=== PATIENT | female | born 1955 | race Caucasian/White ===

== ENCOUNTER → 2016-10-20 | Outpatient (CLI) | payer BC ==
--- NOTE | 2016-10-20 18:33 | DX ---
Lumbar Spine, Two Views, at 16:35 hours Indication: Five weeks post fusion. Technique: Upright AP and lateral views. Comparison: CT lumbar spine dated May 15, 2016 and MRI of the lumbar spine dated June 07. Findings: The posterior fusion construct extending from L4 to S1 consists of dual posterior rods and bilateral transpedicular screws in L4, L5, and S1. Allograft and markers reside in the L4-L5 and L5 -S1 interbody spaces. Screw, with a washer, in the anteroinferior cortex of L4 secures the allograft at the L4-L5 level, and a screw, with a washer, in the anterior cortex of S1 secures the graft at th e L5-S1 level. No perihardware fracture or lucency. The allograft appears partially fused to the ve rtebral bodies. Alignment is normal. No compression fractures. Moderate constipation. IMPRESSION: Well-seated posterior fusion construct extending from L4 to S1.
== END ==
LOC: BMCIMAGING 16:37
PROVIDERS: ATTEND Family Medicine
DX: Z09 Encounter for follow-up examination after completed treatment for conditions other than malignant neoplasm (principal); Z98.1 Arthrodesis status

== ENCOUNTER → 2017-01-05 | Outpatient (CLI) | payer BC | LOC: BMCIMAGING 16:50 | PROVIDERS: ATTEND Family Medicine | DX: Z09 Encounter for follow-up examination after completed treatment for conditions other than malignant neoplasm (principal); Z98.1 Arthrodesis status ==

== ENCOUNTER → 2017-03-09 | Outpatient (CLI) | payer BC | LOC: FIMAGING 13:38 | PROVIDERS: ATTEND Obstetrics & Gynecology Gynecology | DX: Z12.31 Encounter for screening mammogram for malignant neoplasm of breast (principal); Z80.3 Family history of malignant neoplasm of breast | CPT/HCPCS: G0202 ==

== ENCOUNTER → 2017-03-25 | Outpatient (CLI) | payer BC | LOC: FIMAGING 18:20 | PROVIDERS: ATTEND Internal Medicine Rheumatology | DX: M19.041 Primary osteoarthritis, right hand (principal) ==

== ENCOUNTER 2017-09-14 10:04 | Observation (INO) | payer BC ==
--- NOTE | 2017-09-14 08:12 | PDHPUP ---
History & Physical Update H&P update statement: This history and physical update is based on an assessment of the patient which was completed after admission or registration (within 24 hours), but prior to the surgery/procedure. H&P update: H&P reviewed & patient examined, no change in patient's condition since H&P completed
[2017-09-14] MEDS ORDERED: ceFAZolin 2 GM/SWFI 2 GM/20 ML SYR IVP ONE (10:08)
[2017-09-14] MEDS ORDERED: LR 1,000 ML IV ONE (10:10)
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
[2017-09-14] MEDS ORDERED: LIDOCAINE 1% 2 ML INJ ONE (10:26)
[2017-09-14] MEDS ORDERED: BUPIVACAINE 0.5% 30 ML SDV ONE (10:30)
[2017-09-14] MEDS ORDERED: MIDAZOLAM 2 MG/2 ML VIAL IVP ONE (10:44)
[2017-09-14] MEDS ORDERED: MIDAZOLAM 2 MG/2 ML VIAL ONE (10:44)
[2017-09-14] MEDS ORDERED: LIDOCAINE 2% 100 MG/5 ML SYR ONE (10:47)
[2017-09-14] MEDS ORDERED: DEXAMETHASONE 4 MG/ML VIAL ONE (10:47)
[2017-09-14] MEDS ORDERED: ONDANSETRON 4 MG/2 ML VIAL ONE (10:47)
[2017-09-14] MEDS ORDERED: fentaNYL 100 MCG/2 ML INJ ONE ×2 (10:47→12:03)
[2017-09-14] MEDS ORDERED: PROPOFOL 200 MG/20 ML VIAL ONE (10:47)
[2017-09-14] MEDS ORDERED: ROCURONIUM 50 MG/5 ML VIAL ONE (11:32)
[2017-09-14] MEDS ORDERED: SUGAMMADEX SODIUM 200 MG/2 ML VIAL IVP ONE (11:42)
[2017-09-14] MEDS ORDERED: OXYCODONE/APAP 5/325 TAB PO PRN (12:00)
[2017-09-14] MEDS ORDERED: DEXAMETHASONE 4 MG/ML VIAL IVP PRN (12:00)
[2017-09-14] MEDS ORDERED: fentaNYL 100 MCG/2 ML INJ IVP PRN (12:00)
[2017-09-14] MEDS ORDERED: ONDANSETRON 4 MG/2 ML VIAL IVP PRN ×2 (12:00→12:03)
[2017-09-14] MEDS ORDERED: HYDROCODONE/APAP 5/325 TAB PO PRN (12:00)
[2017-09-14] MEDS ORDERED: ACETAMINOPHEN 500 MG TAB PO PRN (12:00)
[2017-09-14] MEDS ORDERED: NALOXONE HCL 0.4 MG/ML INJ IVP PRN (12:00)
[2017-09-14] MEDS ORDERED: PROMETHAZINE HCL 25 MG/ML INJ IVP PRN (12:00)
--- NOTE | 2017-09-14 12:01 | POSTANESTH ---
Post Anesthetic Evaluation Cardiovascular Status: Normal, Stable, Similar to Pre-Op Cond Respiratory Status: Normal, Stable, Similar to Pre-op Cond. Level of Consciousness/Mental Status: Can Participate in Eval, Moderately Sleepy Pain Control: Adequate, Prn Tx Ordered Nausea/Vomiting Control: Adequate, Prn Tx Ordered Complications Possibly Related to Anesthesia: None Noted
--- NOTE | 2017-09-14 12:06 | POSTOPPROG ---
Post Op Note Date of Operation: 09/14/17 Surgeon: Jose Kaufman [employer] Operator Helper: Adelaide Alfonso Anesthesiologist: Rell Loya Anesthesia: LMA Pre-op Diagnosis: incisional ventral supraumbilical hernia Post-op Diagnosis: same Procedure: open incisional ventral hernia repair Findings: 1.5 in defect Inf/Abcess present in the surg proc area at time of surgery?: No EBL: Minimal Complications: none Specimen(s): ventral hernia sac
[2017-09-14] MEDS ORDERED: HYDROmorphONE/DILAUDID 1 MG/ML INJ ONE ×2 (12:11→12:36)
[2017-09-14] MEDS: HYDROmorphONE/DILAUDID 1 MG/ML INJ IVP PRN ×4 (12:13→12:54)
[2017-09-14] MEDS: OXYCODONE/APAP 5/325 TAB PO PRN ×3 (14:31→22:19)
[2017-09-14] MEDS ORDERED: NON-FORMULARY NEW DRUG (Ondansetron Hcl [Zofran] 4 MG) PO PRN (15:53)
[2017-09-14] MEDS ORDERED: ACETAMINOPHEN 325 MG TAB PO PRN (15:53)
[2017-09-14] MEDS ORDERED: [UNRECOGNIZED DRUG - OTHER] RC SCH (16:00)
[2017-09-14] MEDS ORDERED: CEVIMELINE HCL 30 MG PO SCH (16:00)
[2017-09-14] MEDS ORDERED: TESTOSTERONE RC SCH ×2 (16:15→16:30)
[2017-09-14] MEDS ORDERED: clonazePAM 1 MG TAB PO ONE ×2 (16:30→22:30)
[2017-09-14] MEDS ORDERED: ONDANSETRON DISINTEGRATING 4 MG TAB PO PRN (16:31)
[2017-09-14] MEDS: LORazepam 1 MG TAB PO PRN ×2 (16:44→21:19)
[2017-09-14] MEDS ORDERED: (Phentermine Hcl [Phentermine Hcl] 37.5 MG) PO SCH (16:45)
[2017-09-14] MEDS: NABUMETONE 750 MG TAB PO SCH ×2 (16:51→21:12)
[2017-09-14] MEDS: (Cevimeline Hcl [Evoxac] 30 MG) PO SCH ×2 (16:52→21:16)
[2017-09-14] MEDS: PROGESTERONE,MICR 100 MG CAP PO SCH (16:58)
[2017-09-14] MEDS: KETOROLAC 15 MG/1 ML SDV IVP SCH ×2 (17:01→23:33)
[2017-09-14] MEDS ORDERED: NABUMETONE 750 MG TAB PO SCH (18:00)
[2017-09-14] MEDS ORDERED: POLYETHYLENE GLYCOL 3350 17 GM PKT PO PRN (20:15)
[2017-09-14] MEDS ORDERED: LACTULOSE 20 GM/30 ML UDCUP PO PRN (20:15)
[2017-09-14] MEDS ORDERED: BISACODYL 10 MG SUPP PR PRN (20:15)
[2017-09-14] MEDS ORDERED: MAGNESIUM HYDROXIDE 30 ML UDCUP PO PRN (20:15)
[2017-09-14] MEDS ORDERED: [UNRECOGNIZED DRUG - OTHER] EACHEYE SCH (21:00)
[2017-09-14] MEDS ORDERED: MINERAL OIL OP SCH ×3 (21:00)
[2017-09-14] MEDS ORDERED: SYSTANE ULTRA EACHEYE SCH (21:00)
[2017-09-14] MEDS ORDERED: PEG EACHEYE SCH (21:00)
[2017-09-14] MEDS ORDERED: PROPYLENE GLYCOL EACHEYE SCH (21:00)
[2017-09-14] MEDS ORDERED: NON-FORMULARY NEW DRUG EACHEYE SCH (21:00)
[2017-09-14] MEDS ORDERED: clonazePAM 0.5 MG TAB PO SCH (21:00)
[2017-09-14] MEDS ORDERED: PETROLATUM WHITE OP SCH ×3 (21:00)
[2017-09-14] MEDS ORDERED: [UNRECOGNIZED DRUG - OTHER] OP SCH (21:00)
[2017-09-14] MEDS: SENNOSIDES/DOCUSATE SODIUM TAB PO SCH (21:08)
[2017-09-14] MEDS: FAMOTIDINE 20 MG TAB PO SCH (21:08)
[2017-09-14] MEDS: DOCUSATE SODIUM 100 MG CAP PO SCH (21:08)
[2017-09-15] MEDS: LORazepam 1 MG TAB PO PRN (02:48)
[2017-09-15] MEDS: OXYCODONE/APAP 5/325 TAB PO PRN (02:48)
[2017-09-15] MEDS: KETOROLAC 15 MG/1 ML SDV IVP SCH ×2 (05:27→12:00)
[2017-09-15 08:29] VITALS: BP 102/67; PULSE 77; RESP 18; TEMP 97.7; O2SAT 94
[2017-09-15] MEDS ORDERED: PHENTERMINE PO SCH (09:00)
[2017-09-15] MEDS ORDERED: clonazePAM 1 MG TAB PO SCH (09:00)
[2017-09-15] MEDS ORDERED: PHENTERMINE HCL PO SCH (09:00)
[2017-09-15] MEDS ORDERED: PROGESTERONE,MICR 100 MG CAP PO SCH (09:00)
[2017-09-15] MEDS ORDERED: VAYACOG PO SCH (09:00)
[2017-09-15] MEDS ORDERED: ESCITALOPRAM OXALATE 40 MG PO SCH ×2 (09:00)
--- NOTE | 2017-09-15 09:29 | ASMTCASEMG ---
Living Arrangements What is your living Answers: Alone arrangement? Who do you live with? Type Of Residence What kind of residence do Answers: House you live in? Discharge Plan Comments Coordination Status Comments Notes: CM spoke w/ JOSE Conley regarding d/c POC. Pt is a 62 y/o female admitted for an enlarging incisional umbilical hernia. Anticipates that pt will d/c independent when medically stable. No therapies ordered at this time. CM available for changes. Plan: Independent Date Signed: 09/15/2017 09:29 AM Electronically Signed By:JOSEPHINE Valdivia
[2017-09-15] MEDS: SENNOSIDES/DOCUSATE SODIUM TAB PO SCH (10:14)
[2017-09-15] MEDS: (Cevimeline Hcl [Evoxac] 30 MG) PO SCH (10:15)
[2017-09-15] MEDS: DOCUSATE SODIUM 100 MG CAP PO SCH (10:15)
[2017-09-15] MEDS: FAMOTIDINE 20 MG TAB PO SCH (10:16)
[2017-09-15] MEDS: NABUMETONE 750 MG TAB PO SCH (10:18)
[2017-09-15] MEDS: PROGESTERONE,MICR 100 MG CAP PO SCH (10:20)
--- NOTE | 2017-09-15 14:07 | ASDISCHSUM ---
Discharge Information Plan Status:Home with No Needs Medically Cleared to Leave:09/14/2017 Discharge Date:09/15/2017 01:53 PM CM D/C Disposition: ADT D/C Disposition:Home, Routine, Self-Care Projected Discharge Date:09/15/2017 12:00 AM Transportation at D/C: Discharge Delay Reason: Follow-Up Date:09/15/2017 12:00 AM Discharge Slot: Final Diagnosis: Placement Information Patient Contact Information Contact Name:RYAN Relationship:Francis Address: Work Phone: City: [facility] Phone: State/In [place] Code: Email: Financial Information Financial Class:HMO and PPO Plans Primary Plan Desc: OUT OF STATE PPO Primary Plan Number:[id number] Secondary Plan Desc: Secondary Plan Number: Assessment Information [facility] Initial CM Assessment Living Arrangements What is your living Answers: Alone arrangement? Who do you live with? Type Of Residence What kind of residence do Answers: House you live in? Discharge Plan Comments Coordination Status Comments Notes: CM spoke w/ JOSE Conley regarding d/c POC. Pt is a 62 y/o female admitted for an enlarging incisional umbilical hernia. Anticipates that pt will d/c independent when medically stable. No therapies ordered at this time. CM available for changes. Plan: Independent Date Signed: 09/15/2017 09:29 AM Electronically Signed By:JOSEPHINE Valdivia Intervention Information
[2017-09-15] MEDS ORDERED: PHENTERMINE HCL 37.5 MG PO SCH (15:00)
[2017-09-16] MEDS ORDERED: ENOXAPARIN 40 MG/0.4 ML SYR SC SCH (09:00)
[2017-09-24] MEDS ORDERED: ESTRADIOL RC SCH (16:30)
== END 2017-09-15 13:53 | disposition home or self-care (01) ==
LOC: F3N 10:04 → F3E 13:47
PROVIDERS: ADMIT Surgery; ATTEND Surgery
PROC: 0WQF0ZZ Repair Abdominal Wall, Open Approach (ICD-10-PCS; principal; 2017-09-14 11:15)
DX: K43.2 Incisional hernia without obstruction or gangrene (principal); F32.9 Major depressive disorder, single episode, unspecified; M81.0 Age-related osteoporosis without current pathological fracture; M35.00 Sjogren syndrome, unspecified; R53.82 Chronic fatigue, unspecified
CPT/HCPCS: 49560; G0378; J0690; J1100; J1170; J1885; J2001; J2250; J2405; J2704; J3010

== ENCOUNTER → 2018-07-01 | Outpatient (CLI) | payer BC | LOC: FIMAGING 10:44 | PROVIDERS: ATTEND Internal Medicine Rheumatology | DX: Z98.1 Arthrodesis status (principal); M46.07 Spinal enthesopathy, lumbosacral region; M41.86 Other forms of scoliosis, lumbar region ==

== ENCOUNTER → 2018-08-01 | Outpatient (CLI) | payer BC | LOC: FIMAGING 12:44 | PROVIDERS: ATTEND Obstetrics & Gynecology Gynecology | DX: Z12.31 Encounter for screening mammogram for malignant neoplasm of breast (principal); Z80.3 Family history of malignant neoplasm of breast ==

== ENCOUNTER → 2018-10-14 | Outpatient (CLI) | payer BC | LOC: BMCIMAGING 14:08 | PROVIDERS: ATTEND Family Medicine | DX: M79.605 Pain in left leg (principal) ==

== ENCOUNTER → 2019-02-21 | Outpatient (CLI) | payer BC | LOC: BMCIMAGING 17:01 ==